=== PATIENT | female | born 1955 | race Two or more races ===

== ENCOUNTER 2017-01-05 11:12 | Emergency (ER) | payer MEDICAID ==
[~2017-01-05] VITALS: Ht 167.6 cm; Wt 116.9 kg
[~2017-01-05 11:12] MED LIST: FAMO20TA18 PO
[2017-01-05 11:25] VITALS: Ht 167.6 cm; Wt 116.9 kg
[2017-01-05] MEDS ORDERED: AZIT250T94 PO (12:38)
[2017-01-05] MEDS ORDERED: BENZ-5 PO (12:39)
[2017-01-05] MEDS ORDERED: D-ME473S18 PO (12:39)
--- NOTE | 2017-01-05 14:22 | ERD ---
ER Documentation Chief Complaint Date/Time DATE: 01/05/17 TIME: 14:18 Chief Complaint FLU LIKE SX X1 WEEK. HPI This patient is a 7-year-old female with no significant medical history presenting to the emergency department for cough ongoing for the past week. The patient states the cough is productive of green phlegm and is worse at night. The patient also reports tactile fevers. The patient denies any sore throat, nausea, vomiting, diarrhea, or other symptoms at this time. ROS All systems reviewed and are negative except as per history of present illness. Medications Home Meds Active Scripts Dextromethorphan Hb-Promethazine Hcl (Promethazine DM Syrup) 473 Ml Syrup, 5 ML PO Q6H Y for COUGH, #4 OZ Prov:YELITZA ARAUJO PA-C 01/05/17 Benzonatate* (Benzonatate*) 100 Mg Capsule, 100 MG PO TID Y for COUGH, #20 CAP Prov:YELITZA ARAUJO PA-C 01/05/17 Azithromycin* (Zithromax*) 250 Mg Tablet, 250 MG PO .ZPACK DIRECTED, #6 TAB TAKE 500 MG (2 TABS) THE FIRST DAY THEN 250 MG (1 TAB) DAYS 2-5 Prov:YELITZA ARAUJO PA-C 01/05/17 Famotidine* (Famotidine*) 20 Mg Tablet, 20 MG PO BID for 20 Days Prov:ROBSON MONTILLA MD 04/13/15 Allergies Allergies: Coded Allergies: No Known Allergy (Unverified , 04/13/15) PMhx/Soc History of Surgery: Yes (2 C SECTIONS, CYST FROM LEFT BREAST) Anesthesia Reaction: No Hx Neurological Disorder: No Hx Respiratory Disorders: No Hx Cardiac Disorders: No Hx Psychiatric Problems: No Hx Miscellaneous Medical Probl: Yes (INSOMNIA) Hx Alcohol Use: No Hx Substance Use: No Hx Tobacco Use: No (QUIT 7 YEARS AGO) Smoking Status: Former smoker FmHx Noncontributory for chief complaint Physical Exam Vitals Vital Signs Date Time Temp Pulse Resp B/P Pulse Ox O2 Delivery O2 Flow Rate FiO2 01/05/17 11:25 97.7 91 20 125/89 95 Physical Exam INITIAL VITAL SIGNS: Reviewed by me. GENERAL: Alert and interactive. No acute distress. Obese body habitus. HEAD: Head is normocephalic and atraumatic. EYES: EOMI. No scleral icterus. No conjunctival injection. ENT: Moist mucosa. NECK: Supple. Full range of motion. RESPIRATORY: Normal respiratory effort. Clear breath sounds bilaterally. No wheezing, rales, or rhonchi. CV: Regular rate and rhythm. Normal S1 S2. No S3 or S4. No murmurs. ABDOMEN: Obese, soft, non-distended, non-tender. No guarding. No rebound. No masses. EXTREMITIES: No deformity. SKIN: Warm and dry. NEUROLOGIC: Alert and oriented x 4. Speech is normal. Moves all extremities equally. No motor or sensory deficits noted. Procedures/MDM This patient is a 61-year-old female presenting to the emergency department for tactile fevers and cough ongoing for the past week. On physical examination the patient vitals are within normal limits. Examination of the lungs reveals clear to auscultation bilaterally with no wheezes, rales, or rhonchi. I spoke with the patient about possibility of a chest x-ray but she declined at this time I believe this is reasonable given the patient's short course of symptoms. I will treat the patient with a prescription for Z-Reese given her past history of pneumonia. I will give her prescriptions for Tessalon Perles and Promethazine DM to take only as needed for cough at nighttime. At this time I very much doubt any bronchitis, pneumonia, pulmonary embolism, pneumothorax, or other emergent conditions. On initial evaluation of the O2 saturation was 95% on room air. On reevaluation the patient's O2 saturation was 98% on room air. The patient is hemodynamically stable for treatment as an outpatient and she agrees with the diagnosis and discharge plan. The patient was advised to return to the emergency department immediately with any new or worsening symptoms and she demonstrates good understanding of this information. Departure Diagnosis: Primary Impression: Upper respiratory infection Additional Impression: Cough Condition: Fair Patient Instructions: Preventing Common Respiratory Infections, Cough, Chronic , Uncertain Cause, (Adult) Referrals: COMMUNITY CLINICS YOU HAVE RECEIVED A MEDICAL SCREENING EXAM AND THE RESULTS INDICATE THAT YOU DO NOT HAVE A CONDITION THAT REQUIRES URGENT TREATMENT IN THE EMERGENCY DEPARTMENT. FURTHER EVALUATION AND TREATMENT OF YOUR CONDITION CAN WAIT UNTIL YOU ARE SEEN IN YOUR DOCTORS OFFICE WITHIN THE NEXT 1-2 DAYS. IT IS YOUR RESPONSIBILITY TO MAKE AN APPOINTMENT FOR FOLOW-UP CARE. IF YOU HAVE A PRIMARY DOCTOR --you should call your primary doctor and schedule an appointment IF YOU DO NOT HAVE A PRIMARY DOCTOR YOU CAN CALL OUR PHYSICIAN REFERRAL HOTLINE AT IF YOU CAN NOT AFFORD TO SEE A PHYSICIAN YOU CAN CHOSE FROM THE FOLLOWING [facility] [address] [facility] [address] [place] [address] [facility] [address] [facility] [address] [facility] [facility] [address] Additional Instructions: Follow-up with your primary care physician within 1 week. Return to the emergency department immediately should you have any new or worsening symptoms, uncontrolled fevers, or other unexplained symptoms. Take all medications as directed. YELITZA ARAUJO PA-C Jan 05, 2017 14:22
== END 2017-01-05 12:48 | disposition home or self-care (01) ==
LOC: FTE 11:12
DX: J06.9 Acute upper respiratory infection, unspecified (principal); Z87.891 Personal history of nicotine dependence
CPT/HCPCS: 99284